=== PATIENT | male | born 1945 | race Caucasian/White ===

== ENCOUNTER 2021-03-20 14:47 | Observation (INO) ==
[2021-03-20] MEDS ORDERED: Naloxone 0.4 MG/ML INJ IVP PRN (15:56)
[2021-03-20] MEDS ORDERED: Ringers Solution, Lactated 1,000 ML IVC SCH (16:00)
[2021-03-20] MEDS ORDERED: Ondansetron 4 MG/2 ML VIAL IVP PRN (16:23)
[2021-03-20] MEDS ORDERED: Gadolinium Contrast Agent (WT Based) IV PRN (16:42)
[2021-03-20] MEDS: Piperacillin/Tazobactam 3.375 GM in 0.9 % Sodium Chloride Mini Bag 100 ML IVPB SCH (16:47)
[2021-03-20] MEDS: Insulin LISPRO 300 UNITS/3 ML VIAL SUBQ SCH (18:15)
[2021-03-20] MEDS ORDERED: Albuterol 2.5 MG/3 ML NEBULIZER IH SCH (20:00)
[2021-03-20] MEDS ORDERED: Insulin DETEMIR 100 UNIT/ML X5UNITS SUBQ SCH (21:00)
[2021-03-20] MEDS: Albuterol 2.5 MG/3 ML NEBULIZER IH SCH (22:33)
[2021-03-21] MEDS: Insulin LISPRO 300 UNITS/3 ML VIAL SUBQ SCH ×4 (00:03→18:26)
[2021-03-21] MEDS: Piperacillin/Tazobactam 3.375 GM in 0.9 % Sodium Chloride Mini Bag 100 ML IVPB SCH ×3 (00:19→17:49)
[2021-03-21] MEDS: Ketorolac 15 MG/ML VIAL IVP PRN ×2 (00:26→10:42)
[2021-03-21 01:30] LABS: Basophils % 0.3 %; Eosinophils # 0.1 K/mcL (0.0-0.6); Eosinophils % 0.8 %; Hematocrit 32.6 % (37.5-50.1); Hemoglobin 10.9 g/dL (12.9-16.9); Immature Granulocytes % 0.4 % (0-4); Lymphocytes # 2.2 K/mcL (0.6-4.6); Lymphocytes % 18.6 %; Mean Corpuscular HGB Conc 33.4 g/dL (31.6-35.5); Mean Corpuscular Hemoglobin 32.4 pg (28.0-33.3); Mean Platelet Volume 10.2 fL (9.4-12.4); Monocytes % 8.1 %; Neutrophils # 8.6 K/mcL (1.6-8.9); Platelet Count 177 K/mcL (140-400); Red Blood Count 3.36 M/mcL (4.19-5.50); Red Cell Distribution Width 13.8 % (11.5-14.5); Segmented Neutrophils % 71.8 %; White Blood Count 11.9 K/mcL (4.3-11.1)
[2021-03-21 01:44] LABS: BUN/Creatinine Ratio 17 (6-26); Blood Urea Nitrogen 17 mg/dL (8-23); Calcium 9.3 mg/dL (8.6-10.3); Carbon Dioxide 19 mEq/L (23-29); Chloride 107 mEq/L (98-107); Glucose 163 mg/dL (70-105); Osmolality,Calculated 287 (280-300); Potassium 3.8 mEq/L (3.5-5.1); Sodium 136 mEq/L (136-145); eGFR For African Americans > 60 (> 60); eGFR For Non-African Americans > 60 (> 60)
[2021-03-21] MEDS: Albuterol 2.5 MG/3 ML NEBULIZER IH SCH ×3 (07:30→21:10)
[2021-03-21] MEDS ORDERED: amLODIPine 5 MG TABLET PO SCH (09:00)
[2021-03-21] MEDS: Artificial Tears SOLN 15 ML BOTTLE RIGHT EYE SCH (20:11)
[2021-03-21] MEDS: Gabapentin 300 MG CAPSULE PO SCH (20:11)
[2021-03-21] MEDS: Insulin DETEMIR 100 UNIT/ML X5UNITS SUBQ SCH (20:11)
[2021-03-22] MEDS: Piperacillin/Tazobactam 3.375 GM in 0.9 % Sodium Chloride Mini Bag 100 ML IVPB SCH ×3 (00:08→17:16)
[2021-03-22 03:07] LABS: Basophils % 0.4 %; Eosinophils # 0.2 K/mcL (0.0-0.6); Eosinophils % 2.2 %; Hemoglobin 10.4 g/dL (12.9-16.9); Immature Granulocytes % 0.4 % (0-4); Lymphocytes # 1.8 K/mcL (0.6-4.6); Lymphocytes % 25.5 %; Mean Corpuscular HGB Conc 33.5 g/dL (31.6-35.5); Mean Corpuscular Hemoglobin 32.9 pg (28.0-33.3); Mean Corpuscular Volume 98.1 fL (83.0-100.0); Mean Platelet Volume 10.1 fL (9.4-12.4); Monocytes # 0.7 K/mcL (0.0-1.3); Monocytes % 9.3 %; Neutrophils # 4.5 K/mcL (1.6-8.9); Platelet Count 159 K/mcL (140-400); Red Blood Count 3.16 M/mcL (4.19-5.50); Red Cell Distribution Width 13.5 % (11.5-14.5); Segmented Neutrophils % 62.2 %; White Blood Count 7.2 K/mcL (4.3-11.1)
[2021-03-22 03:17] LABS: INR 1.2; Prothrombin Time 13.7 Seconds (9.4-12.1)
[2021-03-22 03:32] LABS: % Iron Saturation 14 % (20-55); Alanine Aminotransferase 31 Units/L (7-52); Albumin 3.8 g/dL (3.5-5.7); Albumin/Globulin Ratio 1.4 (1.1-2.2); Alkaline Phosphatase 47 Units/L (34-104); Aspartate Amino Transferase 27 Units/L (13-39); BUN/Creatinine Ratio 16 (6-26); Bilirubin,Total 0.5 mg/dL (0.3-1.0); Blood Urea Nitrogen 18 mg/dL (8-23); Carbon Dioxide 23 mEq/L (23-29); Chloride 108 mEq/L (98-107); Globulin 2.8 g/dL (2.4-3.5); Glucose 193 mg/dL (70-105); Iron 40 mcg/dL (65-175); Magnesium 1.7 mg/dL (1.6-2.6); Osmolality,Calculated 297 (280-300); Phosphorous 3.7 mg/dL (2.7-4.5); Sodium 140 mEq/L (136-145); Total Protein 6.6 g/dL (6.4-8.9); Transferrin 207 mg/dL (203-362); eGFR For African Americans > 60 (> 60); eGFR For Non-African Americans > 60 (> 60)
[2021-03-22 03:35] LABS: Estimated Average Glucose 197 mg/dl; Hemoglobin A1C 8.5 %
[2021-03-22 03:47] LABS: Ferritin 252 ng/mL (20-250)
[2021-03-22 03:52] LABS: Folate 13.1 ng/mL (3.0-16.0)
[2021-03-22] MEDS ORDERED: Insulin LISPRO 300 UNITS/3 ML VIAL SUBQ SCH (07:30)
[2021-03-22] MEDS: Albuterol 2.5 MG/3 ML NEBULIZER IH SCH ×3 (07:48→23:03)
[2021-03-22] MEDS: Gabapentin 300 MG CAPSULE PO SCH ×3 (08:16→20:15)
[2021-03-22] MEDS: Insulin LISPRO 300 UNITS/3 ML VIAL SUBQ SCH ×3 (08:16→17:17)
[2021-03-22] MEDS: Artificial Tears SOLN 15 ML BOTTLE RIGHT EYE SCH ×4 (08:16→20:20)
[2021-03-22] MEDS: Finasteride 5 MG TABLET PO SCH (08:17)
[2021-03-22] MEDS: lisinopriL 20 MG TABLET PO SCH (08:17)
[2021-03-22] MEDS: Aspirin Enteric Coated 81 MG Tablet PO SCH (08:17)
[2021-03-22] MEDS ORDERED: Iron Sucrose Complex 400 MG in 0.9 % Sodium Chloride 250 ML IVPB ONE (08:54)
[2021-03-22] MEDS ORDERED: amLODIPine 5 MG TABLET PO SCH (09:00)
[2021-03-22] MEDS: Cyanocobalamin (B-12) 1,000 MCG TABLET PO SCH (11:12)
[2021-03-22] MEDS: Insulin DETEMIR 100 UNIT/ML X5UNITS SUBQ SCH (20:15)
[2021-03-23] MEDS: Piperacillin/Tazobactam 3.375 GM in 0.9 % Sodium Chloride Mini Bag 100 ML IVPB SCH ×2 (00:40→07:45)
[2021-03-23 06:08] LABS: Basophils % 0.4 %; Eosinophils # 0.2 K/mcL (0.0-0.6); Eosinophils % 2.8 %; Hematocrit 33.2 % (37.5-50.1); Immature Granulocytes % 0.5 % (0-4); Lymphocytes # 1.7 K/mcL (0.6-4.6); Lymphocytes % 21.8 %; Mean Corpuscular HGB Conc 33.1 g/dL (31.6-35.5); Mean Corpuscular Hemoglobin 32.8 pg (28.0-33.3); Mean Corpuscular Volume 99.1 fL (83.0-100.0); Monocytes # 0.6 K/mcL (0.0-1.3); Monocytes % 7.2 %; Neutrophils # 5.1 K/mcL (1.6-8.9); Platelet Count 195 K/mcL (140-400); Red Blood Count 3.35 M/mcL (4.19-5.50); Red Cell Distribution Width 13.7 % (11.5-14.5); Segmented Neutrophils % 67.3 %; White Blood Count 7.6 K/mcL (4.3-11.1)
[2021-03-23 06:15] LABS: INR 1.2; Prothrombin Time 13.4 Seconds (9.4-12.1)
[2021-03-23 06:25] LABS: Alanine Aminotransferase 31 Units/L (7-52); Albumin 4.1 g/dL (3.5-5.7); Albumin/Globulin Ratio 1.6 (1.1-2.2); Alkaline Phosphatase 48 Units/L (34-104); Aspartate Amino Transferase 25 Units/L (13-39); BUN/Creatinine Ratio 18 (6-26); Bilirubin,Total 0.4 mg/dL (0.3-1.0); Blood Urea Nitrogen 20 mg/dL (8-23); Calcium 9.2 mg/dL (8.6-10.3); Carbon Dioxide 22 mEq/L (23-29); Chloride 108 mEq/L (98-107); Globulin 2.6 g/dL (2.4-3.5); Glucose 178 mg/dL (70-105); Osmolality,Calculated 295 (280-300); Phosphorous 3.5 mg/dL (2.7-4.5); Sodium 139 mEq/L (136-145); Total Protein 6.7 g/dL (6.4-8.9); eGFR For African Americans > 60 (> 60); eGFR For Non-African Americans > 60 (> 60)
[2021-03-23] MEDS: Albuterol 2.5 MG/3 ML NEBULIZER IH SCH (07:36)
[2021-03-23] MEDS: Artificial Tears SOLN 15 ML BOTTLE RIGHT EYE SCH (07:45)
[2021-03-23] MEDS: Insulin LISPRO 300 UNITS/3 ML VIAL SUBQ SCH ×2 (07:45→11:40)
[2021-03-23] MEDS: Cyanocobalamin (B-12) 1,000 MCG TABLET PO SCH (07:46)
[2021-03-23] MEDS: Aspirin Enteric Coated 81 MG Tablet PO SCH (07:46)
[2021-03-23] MEDS: Gabapentin 300 MG CAPSULE PO SCH (07:46)
[2021-03-23] MEDS: lisinopriL 20 MG TABLET PO SCH (07:46)
[2021-03-23] MEDS: Finasteride 5 MG TABLET PO SCH (07:46)
[2021-03-23] MEDS ORDERED: Multivit/Ca/Min/Fe/FA 1 TAB TABLET PO SCH (09:00)
[2021-03-23 10:44] VITALS: BP 142/72
== END 2021-03-23 13:25 | disposition home or self-care (01) ==
LOC: 3BNU → SUATTDRO 15:29 → 3BNU 15:43
PROVIDERS: ADMIT Internal Medicine; ATTEND Internal Medicine

== ENCOUNTER 2022-04-27 16:26 | Inpatient (IN) ==
[2022-04-27] MEDS ORDERED: *HR* Adenosine 6 MG/2 ML SYRINGE IVP ONE (16:37)
[2022-04-27] MEDS ORDERED: 0.9 % Sodium Chloride 1,000 ML IV ONE ×2 (16:41→18:20)
[2022-04-27] MEDS ORDERED: Iopamidol - 370 500 ML MLS IVP ONE (16:47)
[2022-04-27 16:58] LABS: Basophils # 0.1 K/mcL (0.0-0.2); Basophils % 0.4 %; Eosinophils # 0.2 K/mcL (0.0-0.6); Eosinophils % 1.3 %; Hematocrit 40.4 % (37.5-50.1); Hemoglobin 13.9 g/dL (12.9-16.9); Immature Granulocytes % 0.4 % (0-4); Lymphocytes # 3.1 K/mcL (0.6-4.6); Lymphocytes % 21.9 %; Mean Corpuscular HGB Conc 34.4 g/dL (31.6-35.5); Mean Corpuscular Hemoglobin 32.4 pg (28.0-33.3); Mean Corpuscular Volume 94.2 fL (83.0-100.0); Mean Platelet Volume 10.2 fL (9.4-12.4); Neutrophils # 9.7 K/mcL (1.6-8.9); Platelet Count 332 K/mcL (140-400); Red Blood Count 4.29 M/mcL (4.19-5.50); Red Cell Distribution Width 13.1 % (11.5-14.5); White Blood Count 14.1 K/mcL (4.3-11.1)
[2022-04-27 17:10] LABS: INR 1.1
[2022-04-27 17:12] LABS: Activated Partial Thrombo Time 31.8 Seconds (26.0-36.0)
[2022-04-27] MEDS ORDERED: *HR* Adenosine 6 MG/2 ML VIAL IVP ONE ×2 (17:13)
[2022-04-27 17:33] LABS: Albumin 4.4 g/dL (3.5-5.7); Albumin/Globulin Ratio 1.5 (1.1-2.2); Bilirubin,Total 0.5 mg/dL (0.3-1.0); Calcium 9.9 mg/dL (8.6-10.3); Magnesium 1.7 mg/dL (1.6-2.6); Potassium 4.3 mEq/L (3.5-5.1); Thyroid Stimulating Hormone 1.554 mcIU/mL (0.340-5.600); Total Protein 7.4 g/dL (6.4-8.9); Troponin I 0.03 ng/mL (< 0.04)
[2022-04-27 17:33] LABS: Influenza A PCR Negative (Negative); Influenza B PCR Negative (Negative); Resp. Syncytial Virus PCR Negative (Negative)
[2022-04-27 17:37] LABS: SARS-CoV-2 by PCR (In House) Negative (Negative)
[2022-04-27 19:30] LABS: VBG HCO3 22 mEq/L (21-27); VBG PCO2 40 mmHg (41-51); VBG PH 7.35 pH Units (7.32-7.42); VBG PO2 58 mmHg (25-50)
[2022-04-27 19:41] LABS: Bacteria,Urine Few per hpf (None-Few); Bilirubin,Urine Negative (Negative); Blood,Urine Negative (Negative); Clarity,Urine Clear (Clear); Color,Urine Light-Yellow (Yellow); Glucose,Urine (UA) >=1000 mg/dL (Normal); Ketones,Urine Negative (Negative); Leukocyte Esterase,Urine Large (Negative); Nitrite,Urine Positive (Negative); PH,Urine 5.5 pH Units (5.0-8.0); Protein,Urine Negative (Neg-Trace); RBC,Urine 0-3 per hpf (0-3); Specific Gravity,Urine > 1.030 (1.010-1.025); Squamous Epithelial Cell,Urine Few per hpf (None-Few); Urobilinogen,Urine Normal (Normal); WBC,Urine 30-50 per hpf (0-3)
[2022-04-27] MEDS ORDERED: cefTRIAXone 1,000 MG in 0.9 % Sodium Chloride 10 ML IVP ONE (20:09)
[2022-04-27] MEDS ORDERED: Melatonin 3 MG TABLET PO PRN (20:55)
[2022-04-27] MEDS ORDERED: Acetaminophen 325 MG TABLET PO PRN (20:55)
[2022-04-27] MEDS ORDERED: Ondansetron 4 MG/2 ML VIAL IVP PRN (20:55)
[2022-04-27] MEDS ORDERED: Naloxone 0.4 MG/ML INJ IVP PRN (20:55)
[2022-04-27] MEDS ORDERED: Perflutren Lipid Microsphere 1.3 ML in 0.9 % Sodium Chloride 8.7 ML IVP PRN (21:29)
[2022-04-27] MEDS ORDERED: Insulin LISPRO 300 UNITS/3 ML VIAL SUBQ PRN (21:35)
[2022-04-27] MEDS ORDERED: *HR* Dextrose 50 % in Water (Syg) 50 ML SYRINGE IVP PRN ×2 (21:35→22:09)
[2022-04-27] MEDS ORDERED: D5% in 0.45% NACL w KCl 20 MEQ/1,000 ML MLS IVC SCH (21:45)
[2022-04-27 22:00] LABS: BUN/Creatinine Ratio 20 (6-26); Blood Urea Nitrogen 25 mg/dL (8-23); Calcium 9.2 mg/dL (8.6-10.3); Carbon Dioxide 25 mEq/L (23-29); Chloride 103 mEq/L (98-107); Glucose 123 mg/dL (70-105); Osmolality,Calculated 290 (280-300); Potassium 3.5 mEq/L (3.5-5.1); Sodium 137 mEq/L (136-145); Troponin I 0.53 ng/mL (< 0.04); eGFR For African Americans > 60 (> 60); eGFR For Non-African Americans 55 (> 60)
[2022-04-27] MEDS ORDERED: Potassium Chloride Elixir 20 MEQ/15 ML UDC PO ONE (22:05)
[2022-04-27] MEDS ORDERED: Dextrose Gel 15 GM/37.5 ML TUBE PO PRN ×2 (22:09)
[2022-04-27] MEDS ORDERED: D5% in Water 1,000 ML IVC PRN (22:09)
[2022-04-27] MEDS ORDERED: *HR* Heparin 5,000 UNIT/ML VIAL IVP PRN (22:15)
[2022-04-27] MEDS ORDERED: Insulin DETEMIR 100 UNIT/ML X5UNITS SUBQ SCH (22:15)
[2022-04-27] MEDS ORDERED: *HR* Heparin 5,000 UNIT/ML VIAL IVP ONE (22:15)
[2022-04-27] MEDS ORDERED: Insulin DETEMIR 100 UNIT/ML X5UNITS SUBQ ONE (22:25)
[2022-04-28 01:20] LABS: Basophils % 0.4 %; Eosinophils # 0.2 K/mcL (0.0-0.6); Eosinophils % 1.6 %; Hematocrit 35.2 % (37.5-50.1); Hemoglobin 12.4 g/dL (12.9-16.9); Immature Granulocytes % 0.5 % (0-4); Lymphocytes # 2.6 K/mcL (0.6-4.6); Lymphocytes % 23.9 %; Mean Corpuscular HGB Conc 35.2 g/dL (31.6-35.5); Mean Corpuscular Hemoglobin 33.1 pg (28.0-33.3); Mean Corpuscular Volume 93.9 fL (83.0-100.0); Mean Platelet Volume 10.1 fL (9.4-12.4); Monocytes # 1.1 K/mcL (0.0-1.3); Monocytes % 9.6 %; Platelet Count 196 K/mcL (140-400); Red Blood Count 3.75 M/mcL (4.19-5.50); Red Cell Distribution Width 13.2 % (11.5-14.5); White Blood Count 10.9 K/mcL (4.3-11.1)
[2022-04-28 01:28] LABS: Alanine Aminotransferase 41 Units/L (7-52); Albumin 3.8 g/dL (3.5-5.7); Albumin/Globulin Ratio 1.5 (1.1-2.2); Alkaline Phosphatase 56 Units/L (34-104); Aspartate Amino Transferase 28 Units/L (13-39); BUN/Creatinine Ratio 19 (6-26); Bilirubin,Total 0.4 mg/dL (0.3-1.0); Blood Urea Nitrogen 23 mg/dL (8-23); Carbon Dioxide 20 mEq/L (23-29); Chloride 104 mEq/L (98-107); Globulin 2.6 g/dL (2.4-3.5); Glucose 203 mg/dL (70-105); Magnesium 2.3 mg/dL (1.6-2.6); Osmolality,Calculated 285 (280-300); Potassium 4.4 mEq/L (3.5-5.1); Sodium 133 mEq/L (136-145); Total Protein 6.4 g/dL (6.4-8.9); eGFR For African Americans > 60 (> 60); eGFR For Non-African Americans 58 (> 60)
[2022-04-28 01:52] LABS: Heparin anti-factor XA UFH < 0.04 IU/mL (0.30-0.70); INR 1.1; Prothrombin Time 12.3 Seconds (9.4-12.1)
[2022-04-28] MEDS: Heparin 25,000UNIT/250ML 1/2NS 25,000 UNIT/250 ML IV.SOLN IVC SCH ×2 (02:22→23:12)
[2022-04-28 05:53] LABS: Estimated Average Glucose 258 mg/dl; Hemoglobin A1C 10.6 %
[2022-04-28] MEDS: Lactobacillus 1 EACH CAP.SPRINK PO SCH ×2 (08:09→20:59)
[2022-04-28] MEDS: Multivit/Ca/Min/Fe/FA 1 TAB TABLET PO SCH (08:09)
[2022-04-28] MEDS: carvediloL 6.25 MG TABLET PO SCH ×2 (08:09→17:07)
[2022-04-28] MEDS: Aspirin Enteric Coated 81 MG Tablet PO SCH (08:09)
[2022-04-28] MEDS: Insulin LISPRO 300 UNITS/3 ML VIAL SUBQ SCH ×6 (08:10→17:09)
[2022-04-28] MEDS: Insulin DETEMIR 100 UNIT/ML X5UNITS SUBQ SCH ×2 (08:12→21:00)
[2022-04-28] MEDS: cefTRIAXone 2,000 MG in 0.9 % Sodium Chloride 10 ML IVP SCH (08:12)
[2022-04-28] MEDS ORDERED: Nitroglycerin 1 INCH/GM PACKET TP ONE (11:11)
[2022-04-28] MEDS ORDERED: methylPREDNISolone 125 MG/2 ML VIAL IVP ONE (11:14)
[2022-04-28] MEDS: predniSONE 20 MG TABLET PO SCH (17:07)
[2022-04-28] MEDS: *HR* Heparin 5,000 UNIT/ML VIAL IVP PRN (17:22)
[2022-04-28] MEDS ORDERED: predniSONE 20 MG TABLET PO ONE (21:00)
[2022-04-28] MEDS ORDERED: Aspirin Enteric Coated 325 MG Tablet PO ONE (22:42)
[2022-04-29 03:16] LABS: Hematocrit 35.6 % (37.5-50.1); Hemoglobin 12.3 g/dL (12.9-16.9); Mean Corpuscular HGB Conc 34.6 g/dL (31.6-35.5); Mean Corpuscular Hemoglobin 32.5 pg (28.0-33.3); Mean Corpuscular Volume 93.9 fL (83.0-100.0); Mean Platelet Volume 10.2 fL (9.4-12.4); Platelet Count 187 K/mcL (140-400); Red Blood Count 3.79 M/mcL (4.19-5.50); Red Cell Distribution Width 13.3 % (11.5-14.5); White Blood Count 9.4 K/mcL (4.3-11.1)
[2022-04-29] MEDS: *HR* Heparin 5,000 UNIT/ML VIAL IVP PRN (03:34)
[2022-04-29 03:37] LABS: BUN/Creatinine Ratio 25 (6-26); Blood Urea Nitrogen 30 mg/dL (8-23); Carbon Dioxide 19 mEq/L (23-29); Chloride 98 mEq/L (98-107); Glucose 465 mg/dL (70-105); Osmolality,Calculated 291 (280-300); Potassium 4.6 mEq/L (3.5-5.1); Sodium 127 mEq/L (136-145); eGFR For African Americans > 60 (> 60); eGFR For Non-African Americans 58 (> 60)
[2022-04-29] MEDS: Insulin LISPRO 300 UNITS/3 ML VIAL SUBQ SCH ×6 (06:49→16:44)
[2022-04-29] MEDS: cefTRIAXone 2,000 MG in 0.9 % Sodium Chloride 10 ML IVP SCH (07:35)
[2022-04-29] MEDS: Multivit/Ca/Min/Fe/FA 1 TAB TABLET PO SCH (07:36)
[2022-04-29] MEDS: predniSONE 20 MG TABLET PO SCH (07:36)
[2022-04-29] MEDS: Aspirin Enteric Coated 81 MG Tablet PO SCH (07:36)
[2022-04-29] MEDS: Lactobacillus 1 EACH CAP.SPRINK PO SCH ×2 (07:36→20:22)
[2022-04-29] MEDS: carvediloL 6.25 MG TABLET PO SCH ×2 (07:36→16:43)
[2022-04-29] MEDS: Insulin DETEMIR 100 UNIT/ML X5UNITS SUBQ SCH ×2 (07:39→20:22)
[2022-04-29] MEDS ORDERED: *HR* Midazolam HCl 2 MG/2 ML VIAL ONE (14:56)
[2022-04-29] MEDS ORDERED: *HR* FentaNYL (PF) 100 MCG/2 ML VIAL ONE (14:56)
[2022-04-29] MEDS ORDERED: Iopamidol - 370 200 ML INFUS..BTL ONE (14:57)
[2022-04-29] MEDS ORDERED: Heparin 1,000 UNITS/500 mL 500 ML ONE (14:57)
[2022-04-29] MEDS ORDERED: *HR* Heparin 10,000 UNIT/10 ML VIAL ONE (14:57)
[2022-04-29] MEDS ORDERED: Nitroglycerin 1,000 MCG/5 ML VIAL IV ONE (14:57)
[2022-04-29] MEDS ORDERED: 0.9 % Sodium Chloride 2,000 ML ONE (14:57)
[2022-04-30 01:35] LABS: Hematocrit 35.5 % (37.5-50.1); Hemoglobin 12.3 g/dL (12.9-16.9)
[2022-04-30 01:48] LABS: BUN/Creatinine Ratio 27 (6-26); Blood Urea Nitrogen 30 mg/dL (8-23); Calcium 9.3 mg/dL (8.6-10.3); Carbon Dioxide 19 mEq/L (23-29); Chloride 100 mEq/L (98-107); Glucose 363 mg/dL (70-105); Osmolality,Calculated 291 (280-300); Potassium 3.8 mEq/L (3.5-5.1); Sodium 130 mEq/L (136-145); eGFR For African Americans > 60 (> 60); eGFR For Non-African Americans > 60 (> 60)
[2022-04-30] MEDS: Heparin 25,000UNIT/250ML 1/2NS 25,000 UNIT/250 ML IV.SOLN IVC SCH (04:52)
[2022-04-30] MEDS: Insulin LISPRO 300 UNITS/3 ML VIAL SUBQ SCH ×4 (08:30→12:40)
[2022-04-30] MEDS: cefTRIAXone 2,000 MG in 0.9 % Sodium Chloride 10 ML IVP SCH (08:41)
[2022-04-30] MEDS: Lactobacillus 1 EACH CAP.SPRINK PO SCH (08:41)
[2022-04-30] MEDS: Multivit/Ca/Min/Fe/FA 1 TAB TABLET PO SCH (08:41)
[2022-04-30] MEDS: Aspirin Enteric Coated 81 MG Tablet PO SCH (08:41)
[2022-04-30] MEDS: carvediloL 6.25 MG TABLET PO SCH (08:42)
[2022-04-30] MEDS: Insulin DETEMIR 100 UNIT/ML X5UNITS SUBQ SCH (08:42)
[2022-04-30 12:03] VITALS: PULSE 70; TEMP 98
[2022-04-30 12:07] VITALS: BP 162/93; O2SAT 100
[2022-04-30] MEDS ORDERED: lisinopriL 20 MG TABLET PO SCH (12:15)
== END 2022-04-30 13:08 | disposition home or self-care (01) | DRG 871 ==
LOC: 2NNU 16:26 → EMEROOARM 16:26 → SUATTDRO 20:39 → 2NNU 21:03 → SUATTDRO 21:18
PROVIDERS: ADMIT Internal Medicine; ATTEND Internal Medicine